=== PATIENT | female | born 1990 | race Asian ===

== ENCOUNTER 2018-03-28 15:21 | Outpatient (CLI) | payer OTHER ==
[~2018-03-28] VITALS: Ht 157.5 cm; Wt 71.1 kg
[~2018-03-28 15:21] MED LIST: PERM120L5 TP
[2018-03-28 15:37] VITALS: Ht 157.5 cm; Wt 71.1 kg
[2018-03-28 16:05] VITALS: BP 142/60; PULSE 109; RESP 19
[2018-03-28] MEDS ORDERED: PNV11TAB PO (16:12)
[2018-03-28] MEDS ORDERED: CEPH500C PO (16:14)
[2018-03-28] MEDS ORDERED: LACTATED RINGER'S 1,000 ML IV SCH (18:30)
[2018-03-28] MEDS ORDERED: BETAMET NA PHOS/AC(6 MG/ML) 2 ML INJ SYG IM SCH (21:00)
--- NOTE | 2018-03-28 21:36 | PN ---
Triage Information Date/Time Reason for visit: Abd/pelvic pain Weeks of Gestation 30 weeks /Para Diabetes: none Hypertention: none Additional information Twin Objective Vital Signs Date Temp Pulse Resp B/P (MAP) Pulse Ox O2 O2 Flow FiO2 Time Delivery Rate 03/28/18 98.0 109 19 142/60 98 Room Air 16:05 (87) Heart Rate: 120's Heart Rate Comments Reactive both twins Exam No cervical change Results/Medications Result Diagram: 03/28/18 1820 Results 24 hrs Laboratory Tests Test 03/28/18 18:20 White Blood Count 10.8 Red Blood Count 3.72 L Hemoglobin 10.2 L Hematocrit 30.6 L Mean Corpuscular Volume 82.3 Mean Corpuscular Hemoglobin 27.4 L Mean Corpuscular Hemoglobin Concent 33.3 Red Cell Distribution Width 12.9 Platelet Count 245 Mean Platelet Volume 9.3 # Immature Granulocytes % 1.900 H Neutrophils % 69.8 Lymphocytes % 18.5 Monocytes % 8.2 Eosinophils % 1.1 Basophils % 0.5 Nucleated Red Blood Cells % 0.0 Immature Granulocytes # 0.200 H Neutrophils # 7.5 Lymphocytes # 2.0 Monocytes # 0.9 Eosinophils # 0.1 Basophils # 0.1 Nucleated Red Blood Cells # 0.0 Urine Color COLORLESS Urine Clarity CLEAR Urine pH 7.0 Urine Specific [place] 1.001 L Urine Ketones NEGATIVE Urine Nitrite NEGATIVE Urine Bilirubin NEGATIVE Urine Urobilinogen NEGATIVE Urine Leukocyte Esterase NEGATIVE Urine Hemoglobin NEGATIVE Urine Glucose NEGATIVE Urine Total Protein NEGATIVE Medications Current Medications Lactated Ringer's 1,000 ml @ 125 mls/hr Q8H IV Last administered on 03/28/18at 18:52; Admin Dose 125 MLS/HR; Start 03/28/18 at 18:30 Betamethasone Acet/Betameth SodPhos (Celestone Soluspan) 12 mg Q24H IM Last administered on 03/28/18at 21:01; Admin Dose 12 MG; Start 03/28/18 at 21:00; Stop 03/29/18 at 21:01 Disposition: Discharge Assessment/Plan IM betamethasone given Return in 24 hours for next dose. JESSICA MORENO MD Mar 28, 2018 21:36
--- NOTE | 2018-03-28 21:54 | TRIAGE ---
OB Triage Datetime Report Generated by CPN: 03/28/2018 21:54 Datetime: 03/28/2018 21:27 Vaginal Exam Dilatation (cms): 1.0 Effacement (%): 50 Station: -3 Exam By: DR.DELSHAD Datetime: 03/28/2018 21:06 Labor Evaluation Frequency: IRRITABILITY Monitor Mode: External Duration (sec)2399: 20-30 Quality: Mild Pattern: Normal: <= 5 Contractions in 10 Minutes Resting Tone [place]: Relaxed Heart Rate FHR Baseline Rate: 135 Monitor Mode: External US FHR Baseline Changes: No Baseline Change Variability: Moderate 6-25 bpm Accelerations: 15X15 Decelerations: None Category: Category I Datetime: 03/28/2018 19:53 Labor Evaluation Frequency: none Monitor Mode: External Pattern: Normal: <= 5 Contractions in 10 Minutes Resting Tone [place]: Relaxed Heart Rate FHR Baseline Rate: 135 Monitor Mode: External US FHR Baseline Changes: No Baseline Change Variability: Moderate 6-25 bpm Accelerations: 15X15 Decelerations: None Category: Category I Datetime: 03/28/2018 19:05 Assessment Type: Triage Monitor Mode: External US FHR Baseline Changes: No Baseline Change Variability: Moderate 6-25 bpm Accelerations: 15X15 Decelerations: None Category: Category I Pain Assessment Pain Scale: 0 Pain Presence: None/Denies Pain Relief Measures: Comfort Measures Vaginal Bleeding: None Datetime: 03/28/2018 19:00 Labor Evaluation Frequency: irritability Monitor Mode: External Quality: Mild Pattern: Normal: <= 5 Contractions in 10 Minutes Resting Tone [place]: Relaxed Heart Rate FHR Baseline Rate: 135 Monitor Mode: External US FHR Baseline Changes: No Baseline Change Variability: Moderate 6-25 bpm Accelerations: 15X15 Decelerations: None Category: Category I Datetime: 03/28/2018 17:22 Heart Rate FHR Baseline Rate: 130 Monitor Mode: External US FHR Baseline Changes: No Baseline Change Variability: Moderate 6-25 bpm Accelerations: 15X15 Decelerations: None Category: Category I Datetime: 03/28/2018 17:11 Labor Evaluation Frequency: NONE Monitor Mode: Palpation Resting Tone [place]: Relaxed Datetime: 03/28/2018 16:53 Vaginal Exam Dilatation (cms): 1.0 Effacement (%): 50 Station: -3 Datetime: 03/28/2018 16:28 Labor Evaluation Frequency: 0 Monitor Mode: External Resting Tone [place]: Relaxed Heart Rate FHR Baseline Rate: 140 Monitor Mode: External US FHR Baseline Changes: No Baseline Change Variability: Moderate 6-25 bpm Accelerations: 15X15 Decelerations: None Category: Category I Pain Assessment Pain Scale: 0 Pain Presence: None/Denies Pain Relief Measures: Comfort Measures Membrane Status: Intact Datetime: 03/28/2018 15:55 Labor Evaluation Frequency: 0 Heart Rate FHR Baseline Rate: 140 Monitor Mode: External US FHR Baseline Changes: No Baseline Change Variability: Moderate 6-25 bpm Accelerations: 15X15 Decelerations: None Category: Category I Pain Assessment Pain Scale: 0 Pain Presence: None/Denies Pain Relief Measures: Comfort Measures Datetime: 03/28/2018 15:30 Stage of : OB Triage Assessment Type: Triage Maternal Assessment Level of Consciousness: Fully Conscious DTR's/Clonus: DTRs 2+; No Clonus Headache: Denies Blurred Vision: No Respiratory Effort: Unlabored; Regular Rhythm; Equal Expansion Breath Sounds, Left: Clear and Equal Breath Sounds, Right: Clear and Equal Nausea/Vomiting: Denies RUQ Epigastric Pain: Denies Lower Extremities Edema: None Upper Extremities Edema: None Facial Edema: None Temperature Route: Oral Fall Risk Assessment History of Falling: (0) No Secondary Diagnosis: (0) No Ambulatory Aid: (0) Bedrest/Nurse Assist IV Therapy: (0) No Gait: (0) Normal/Bedrest/Immobile Mental Status: (0) Oriented to Own Ability Fall Score: 0 Fall Risk Score Definition: No Risk: No action required Pain Assessment Pain Scale: 0 Pain Presence: None/Denies Pain Type: N/A Pain Goal: 0 Pain Relief Measures: Comfort Measures Datetime: 03/28/2018 15:29 Stage of : OB Triage Assessment Type: Triage Maternal Assessment Level of Consciousness: Fully Conscious DTR's/Clonus: DTRs 2+; No Clonus Headache: Denies Blurred Vision: No Respiratory Effort: Unlabored; Regular Rhythm; Equal Expansion Breath Sounds, Left: Clear and Equal Breath Sounds, Right: Clear and Equal Nausea/Vomiting: Denies RUQ Epigastric Pain: Denies Lower Extremities Edema: None Degree: None Upper Extremities Edema: None Degree: None Facial Edema: None Fall Risk Assessment History of Falling: (0) No Secondary Diagnosis: (0) No Ambulatory Aid: (0) Bedrest/Nurse Assist IV Therapy: (0) No Gait: (0) Normal/Bedrest/Immobile Mental Status: (0) Oriented to Own Ability Fall Score: 0 Fall Risk Score Definition: No Risk: No action required Datetime: 03/28/2018 15:28 EGA: 30.6 Datetime: 03/28/2018 15:25 Arrived By: Ambulatory Arrived From: Office Chief Complaint: Sent from MD office for BPP/NST Movement: Present Contractions: Denies/Absent Rupture of Membranes: Denies Vaginal Bleeding: None Vaginal Discharge: Present Recent Sexual Intercouse: Denies Abdominal Trauma: Not Applicable Patient Complaints: None Datetime: 03/28/2018 15:14 Time of Arrival: 03/28/2018 15:14 Arrived By: Ambulatory Arrived From: Office Chief Complaint: LOST MUCOUS PLUG,DENIES CONTRACTIONS,VE 1CM?50%/-3 AND TWINS AT 30 WKS. Movement: Present Contractions: Denies/Absent Rupture of Membranes: Denies Vaginal Bleeding: None Vaginal Discharge: Denies Recent Sexual Intercouse: Denies Abdominal Trauma: Not Applicable Patient Complaints: None Provider Notified: ABUSLEME Initial Plan: NST ,BPP, EFW, IV HYDRATION ,UA AND UA /CS AND CBC
== END 2018-03-28 21:45 | disposition home or self-care (01) ==
LOC: OBT 15:21 → L-D 15:22 → OBT 21:45
PROVIDERS: ATTEND Obstetrics & Gynecology
DX: O26.893 Other specified pregnancy related conditions, third trimester (principal); Z3A.30 30 weeks gestation of pregnancy; R10.2 Pelvic and perineal pain
CPT/HCPCS: 36415; 76815; 76817; 76818; 81003; 85025; 87086; 96360; 96361; J0702; J7120; Z7500; G0463

== ENCOUNTER 2018-03-29 20:57 | Outpatient (CLI) | payer OTHER ==
[~2018-03-29] VITALS: Ht 154.9 cm; Wt 71.3 kg
[~2018-03-29 20:57] MED LIST changes: +CEPH500C PO; +PNV11TAB PO
[2018-03-29 21:29] VITALS: BP 110/60; PULSE 110; RESP 18
[2018-03-29] MEDS ORDERED: BETAMET NA PHOS/AC(6 MG/ML) 2 ML INJ SYG IM ONE (21:30)
--- NOTE | 2018-03-30 00:45 | PN ---
Triage Information Date/Time Late entry note for exam done for March 29, 2018 Reason for visit: Patient is here to receive the second dose of steroid shots was given for concern for possible delivery. Weeks of Gestation 31 weeks /Para 2 para 1 Diabetes: none Hypertention: none Additional information 27-year-old with IUP at 31 weeks and twin gestation with care with Dr. Jerilyn Bartholomew, who presented yesterday to triage with complaint of cramps and ruled out for labor. She was given a dose of steroid and was sent today to receive a second dose of steroid. Patient had a vaginal exam yesterday and for that reason fibronectin was not done. Currently more than 24 hours after exam. Patient currently denies any abdominal pain, uterine cramping, leaking of fluid, vaginal bleeding or decreased movement. She had a cervical length that showed 3.2 cm. fibronectin today was done negative. Patient is asymptomatic. She is here to receive the second dose of steroid. First dose was given 24 hours ago. Objective Vital Signs Date Temp Pulse Resp B/P (MAP) Pulse Ox O2 O2 Flow FiO2 Time Delivery Rate 03/29/18 98.2 110 18 110/60 Room Air 21:29 (77) Heart Rate: 130's Heart Rate Comments NST category 1 for both fetuses Contractions: None Exam General appearance: Alert and oriented x4 does not appear to be in any acute distress comfortable Abdomen: Soft, gravid, fundal height consider gestational age NST: Category 1 for both fetuses No contraction noted on the monitor Laboratory Tests Test 03/29/18 21:43 Fibronectin NEGATIVE Results/Medications Results 24 hrs Laboratory Tests Test 03/29/18 21:43 Fibronectin NEGATIVE Imaging Results PROCEDURE: CERVICAL LENGTH ULTRASOUND CLINICAL INDICATION: DFM, size, twins. TECHNIQUE: Trans-vaginal imaging of the cervical canal was performed utilizing becker-scale imaging. Sagittal and transverse images were obtained. Trans- abdominal images were also obtained. The images were reviewed on a PACS workstation. COMPARISON: OB ultrasound of the same day. FINDINGS: The cervix is closed with a length of 3.2 cm. There is twin live intrauterine . Twin A: heart rate is 129 beats per minute. Position is cephalic and placenta is posterior, grade 1. Twin B: heart rate is 142 beats per minute. Position is transverse, maternal left and placenta is fundal posterior, grade 1. IMPRESSION: 1. Cervical length measures 3.2 cm. RPTAT: HFN Disposition: Discharge Assessment/Plan IUP at 31 weeks Twin gestation No evidence of labor No contraction noted on the monitor Cervical length yesterday was checked 3.2 fibronectin today was then negative Cervix appears closed and long DC home Strict labor precautions kick count discussed the patient Follow-up within 24-48 hours with primary OB office recommended Adequate hydration discussed Patient verbalized understanding all the above recommendation and discussion. All questions were answered to patient's best satisfaction. ALEC RILEY MD Mar 30, 2018 00:45
--- NOTE | 2018-03-30 02:46 | TRIAGE ---
OB Triage Datetime Report Generated by CPN: 03/30/2018 02:46 Datetime: 03/29/2018 22:35 Contraction Comments: no contractions palpated Datetime: 03/29/2018 21:40 Stage of : OB Triage Datetime: 03/29/2018 21:14 Monitor Mode: External Monitor Mode: External US Comments: A _ B MONITORS SWITCHED, PT HAD BABY A AND BABY B CONFUSED AT FIRST Datetime: 03/29/2018 21:03 Time of Arrival: 03/29/2018 20:55 EGA: 31.0 Arrived By: Ambulatory Arrived From: Home Chief Complaint: 2ND BETAMETHASONE SHOT Movement: Present Contractions: Denies/Absent Rupture of Membranes: Denies Vaginal Bleeding: None Vaginal Discharge: Denies Recent Sexual Intercouse: Denies Abdominal Trauma: Not Applicable Patient Complaints: Other Time Provider Notified: 03/29/2018 21:40 Provider Notified: Dr Marte Initial Plan: EFM,BETA,FFN
== END 2018-03-29 23:37 | disposition home or self-care (01) ==
LOC: OBT 20:57 → L-D 20:58 → OBT 23:37
PROVIDERS: ATTEND Obstetrics & Gynecology
DX: O26.893 Other specified pregnancy related conditions, third trimester (principal); R10.2 Pelvic and perineal pain; O30.003 Twin pregnancy, unspecified number of placenta and unspecified number of amniotic sacs, third trimester; Z3A.31 31 weeks gestation of pregnancy
CPT/HCPCS: 82731; 96372; J0702; Z7500; G0463

== ENCOUNTER 2018-04-25 14:30 | Inpatient (IN) | payer OTHER ==
[~2018-04-25] VITALS: Ht 160 cm; Wt 85.9 kg
[~2018-04-25 14:30] MED LIST changes: -PERM120L5 TP
[2018-04-25 15:32] VITALS: BP 109/70; RESP 18
[2018-04-25] MEDS ORDERED: LACTATED RINGER'S 1,000 ML IV* SCH (16:00)
[2018-04-25] MEDS ORDERED: TERBUTALINE 1 MG/ML INJ SC PRN (17:00)
[2018-04-25] MEDS ORDERED: NIFEdipine 10 MG CAP PO SCH (21:00)
[2018-04-25] MEDS ORDERED: ACETAMINOPHEN 325 MG TAB PO PRN (21:00)
[2018-04-25] MEDS: LACTATED RINGER'S 1,000 ML IV SCH (21:45)
[2018-04-26] MEDS: NIFEdipine 10 MG CAP PO SCH ×2 (05:45→12:03)
[2018-04-26] MEDS: LACTATED RINGER'S 1,000 ML IV SCH ×3 (06:06→22:04)
--- NOTE | 2018-04-26 11:52 | PREOPHP ---
DATE OF ADMISSION: 04/25/2018 HISTORY OF PRESENT ILLNESS: This is a 27-year-old female 2, para 1, previous vaginal deliver y in 2014. At this time, the patient has seen me with a twin at 20 weeks. She started the care with me with a last period of 08/2017 and EDC by ultrasound of 05/31/2018. The patien elizabeth has been seen by Dr. Ogden a perinatologist for twin with dichorionic diamniotic pregnan cy fraternal twins. She had the cell-free DNA that showed a very low risk for trisomy. This was don e early in the . The patient was slightly anemic. The patient had been seeing me for prena emma care that has been unremarkable with no complications until yesterday where she started having pa in, and she was admitted with 2 cm dilatation, 50% effacement, -2, and membranes intact. She was hav ing contractions that were regular and she is 35 weeks today. The patient is getting admitted for to colysis and for further consultation to perinatology to see when we will deliver her. If we cannot s top the contractions, we will deliver if we could, maybe will keep her in observation since she is al ready dilating. PAST MEDICAL HISTORY: Unremarkable. ALLERGIES: ASPIRIN THAT MAKES HER DIZZY. FAMILY HISTORY: Nonremarkable. PHYSICAL EXAMINATION: VITAL SIGNS: She is 5 feet 3 inches. She weighs 155, blood pressure is 100/70, pulse is 80, respira tions 16. HEAD AND NECK: Normal. CHEST: Clear. HEART: Normal sinus rhythm. LUNGS: Clear. BREASTS: Soft, nontender, no masses. ABDOMEN: Soft. Uterus with irregular contractions right now. PELVIC: Cervix 2 cm, 70% effaced, -2, membranes intact with a twin , first baby is cephalic . Second baby is transverse. BPP NST were normal for both of them. We will wait for perinatology c onsultation to see if we need to imminently deliver her or wait a little bit and see if we can gain a few days for delivery. DIAGNOSES: Twin , 35 weeks with early labor, previous vaginal delivery. Dictated By: LEONA CLAYTON/NTS Conf#: [id number] DID#: [id number]
--- NOTE | 2018-04-26 13:58 | QN ---
Documentation Comment Late entry note. Patient seen on 04/25/2018 at 2000 27 years old 2 para 1001 with diamniotic/dichorionic twin gestation at 35 weeks with a MANJINDER of 05/31/2018 was admitted for close monitoring due to uterine contractions. She states good movement x2. She denies nausea, vomiting, shortness of breath, chest pain, headache, visual changes, vaginal bleeding or LOF. heart rate: Baby A 130 bpm, moderate variability with acceleration, no de celeration Baby B 135 bpm, moderate variability with acceleration, no deceleration She has irregular uterine contractions She is currently on Procardia 20 mg p.o. every 6 hours Her blood type is B+/rubella immune Continue current management Follow-up with her primary OB Consult with perinatologist tomorrow AVELINO QUINTERO Apr 26, 2018 13:58
[2018-04-26] MEDS ORDERED: CA GLUCONATE (GM) 10% 10ML INJ IV PRN (17:00)
[2018-04-26] MEDS ORDERED: MAGNESIUM SULFATE 4 GM/100 ML 100 ML IV SCH (17:00)
[2018-04-26] MEDS: MAGNESIUM SULFATE 20 GM/500 ML 500 ML IV SCH (17:44)
[2018-04-26] MEDS: DEXAMETHASONE 4 MG/ML 5 ML INJ IM SCH (18:34)
--- NOTE | 2018-04-27 00:17 | CONS ---
DATE OF ADMISSION: 04/25/2018 DATE OF CONSULTATION: 04/26/2018 HISTORY OF PRESENT ILLNESS: The patient is a 27-year-old G2, P1 with twin intrauterine at 35 weeks and 2 days, presented with complaint of abdominal pain. She was found to be 2 cm dilated, 5 0% effaced. She was placed on Procardia. Currently, she is still having contractions which she does feel and also she received betamethasone last month. PAST MEDICAL HISTORY: Not significant. PHYSICAL EXAMINATION: VITAL SIGNS: Normal. Physical examination deferred. heart tones reassuring. Contractions every 5 to 10 minutes. IMPRESSION: Twin intrauterine at 35 weeks and 2 days with labor on Procardia and c ontracting. RECOMMENDATIONS: Received Procardia, start magnesium sulfate, also started betamethasone or dexameth asone. Continue with the magnesium sulfate until this last dose of the dexamethasone is given. I do recommend for the patient to stay until 37 weeks given the fact that she is with twins and she has a child at home and she is already 2 cm dilated. After the dexamethasone and magnesium a re done, no need to place the patient on any type of maintenance tocolysis. Dictated By: INGRID HAYES MD ST/NTS Conf#: [id number] DID#: [id number] CC: LEONA SANDOVAL MD;*EndCC*
[2018-04-27] MEDS: MAGNESIUM SULFATE 20 GM/500 ML 500 ML IV SCH (04:39)
[2018-04-27] MEDS: LACTATED RINGER'S 1,000 ML IV SCH ×3 (06:09→19:31)
[2018-04-27] MEDS: DEXAMETHASONE 4 MG/ML 5 ML INJ IM SCH ×2 (08:46→20:29)
[2018-04-27 08:58] VITALS: Ht 160 cm; Wt 85.9 kg
[2018-04-27] MEDS ORDERED: LACTATED RINGER'S 1,000 ML IV SCH (09:49)
[2018-04-27] MEDS ORDERED: MAGNESIUM SULFATE 20 GM/500 ML 500 ML IV SCH (09:49)
[2018-04-27] MEDS ORDERED: NIFEdipine 10 MG CAP ONE (11:34)
--- NOTE | 2018-04-27 11:36 | PN ---
Date/Time of Note Date/Time of Note DATE: 04/27/18 TIME: 11:31 OB Subjective Subjective Subjective Dr. Nicholson was consulted on patient having double vision on 2 g of magnesium per ryanne. The instructions were to DC the magnesium sulfate and start her back on Procardia by mouth . The patient would like to go home but we would like to keep her until 37 weeks to deliver her and keep her under observation for active labor since she is multigravida she could go fast and come back delivering. Her dilatation yesterday was 2-370% effaced and she still allan in spite of magnesium sulfate . OB Objective HEENT: WNL Heart: Rhythm Normal Lungs: Clear, Equal Abdomen: WNL Extremities: Normal Reflexes: Normal Cervical Dilatation: 2cm Effacement: 75% Station: -2 Membranes: Intact Heart Rate: 120's Accelerations: Accelerations Present Varibility: Moderate Contractions on Admission: < 5 Minutes Apart LEONA SANDOVAL MD Apr 27, 2018 11:36
[2018-04-27] MEDS: NIFEdipine 10 MG CAP PO SCH ×2 (11:54→18:05)
[2018-04-28] MEDS: NIFEdipine 10 MG CAP PO SCH ×2 (00:07→06:30)
[2018-04-28] MEDS ORDERED: AL HYDROX/MG HYDROX/SIMETH 30 ML CUP PO PRN (03:00)
[2018-04-28] MEDS ORDERED: AMPICILLIN 2 GM/NS (PMX) 100 ML IVPB ONE (07:30)
--- NOTE | 2018-04-28 07:56 | QN ---
Documentation Comment Patient has been allan quite a bit for which she was evaluated in her cervix is right now at 3-4 cm dilated 50% effaced -2 membranes intact cervix is anterior seems that she is going slowly to labor and we will need to deliver her. An ultrasound is being performed to see what the position of the second twin We will will reevaluate for possible today. Clindamycin being given LEONA SANDOVAL MD Apr 28, 2018 07:56
[2018-04-28] MEDS ORDERED: MISOPROSTOL 200 MCG TAB PR PRN ×2 (08:00→09:00)
[2018-04-28] MEDS ORDERED: OXYTOCIN 30 UNITS/LR 500 ML IV PRN ×2 (08:00→09:00)
[2018-04-28] MEDS ORDERED: CARBOPROST 250 MCG INJ IM PRN ×2 (08:00→09:00)
[2018-04-28] MEDS ORDERED: CLINDAMYCIN 900 MG/D5W (PMX) 50 ML IVPB SCH (08:00)
[2018-04-28] MEDS ORDERED: OXYTOCIN 30 UNITS/LR 500 ML IV SCH ×2 (08:00→08:56)
[2018-04-28] MEDS ORDERED: METHYLERGONOVINE 0.2 MG INJ IM PRN ×2 (08:00→09:00)
[2018-04-28] MEDS ORDERED: LACTATED RINGER'S 1,000 ML IV SCH (08:56)
[2018-04-28] MEDS ORDERED: AMPICILLIN 1 GM/NS (PMX) 50 ML IVPB SCH (09:00)
[2018-04-28] MEDS ORDERED: HYDROCODONE/APAP (5/325) TAB PO PRN (09:00)
[2018-04-28] MEDS ORDERED: METHYLERGONOVINE 0.2 MG TAB PO PRN (09:00)
[2018-04-28] MEDS ORDERED: LANOLIN HPA 1 PKT TOP PRN (09:00)
[2018-04-28] MEDS ORDERED: NA PHOSPHATE/BIPHOS 133 ML ENEMA PR PRN (09:00)
[2018-04-28] MEDS ORDERED: morphine SULFATE/PF (10 MG/10 ML) INJ ONE (09:23)
[2018-04-28] MEDS ORDERED: ONDANSETRON 4 MG INJ ONE (09:23)
[2018-04-28] MEDS ORDERED: KETOROLAC 30 MG INJ ONE (09:23)
[2018-04-28] MEDS ORDERED: METOCLOPRAMIDE 10 MG INJ ONE (09:23)
[2018-04-28] MEDS ORDERED: HYDROmorphONE 0.5 MG/0.5 ML SYG IV PRN (09:30)
--- NOTE | 2018-04-28 09:31 | SIPON ---
Date/Time of Note Date/Time of Note DATE: 04/28/18 TIME: 09:30 Operative Report Preoperative Diagnosis 35 2 weeks twin gestation dichorionic diamniotic in labor Second twin transverse lie Postoperative Diagnosis Same Operation/Procedure Performed Primary low segment transverse section Surgeon see signature line technical assistant Dr. Stapleton Anesthesia: spinal Estimated blood loss: other Transfusion Required none Specimen Placenta Grafts/Implants none Complications none LEONA SANDOVAL MD Apr 28, 2018 09:31
[2018-04-28] MEDS ORDERED: PHENYLephrine (100 MCG/ML) 10ML SYG ONE (09:35)
--- NOTE | 2018-04-28 09:41 | PREOPHP ---
DATE OF ADMISSION: 04/25/2018 HISTORY OF PRESENT ILLNESS: This is a 27-year-old female 2, para 1. This patient is with a twin at 35 and 2 days of , EDC 05/31/2018. The patient has been seeing perinatolo [facility] with a dichorionic, diamniotic fraternal twins and she had no problems until recently where she started having contractions and we admitted her for a 2 cm dilatation of the cervix, 50% ef facement, -2, membranes intact. The patient received magnesium sulfate and the steroids, and she has been intolerant to the magnesium sulfate so we started the Procardia and she is breaking through the Procardia with contractions. The Procardia was 20 mg q.6h. and at this time her dilatation is 4 cm dilation with contractions every 3 minutes and she is feeling strongly. The patient is advised for a section due to the second twin being transverse and also to prevent any problems in vaginal delivery if the second twin was to be delivered vaginally. PAST MEDICAL HISTORY: Noncontributory. ALLERGIES: 1. ASPIRIN THAT MAKES HER DIZZY. 2. PENICILLIN. FAMILY HISTORY: Unremarkable. PHYSICAL EXAMINATION: VITAL SIGNS: The patient is 5'3''. She is 155 pounds, blood pressure is normal 100/70, pulse is 80, respirations 16. HEAD AND NECK: Normal. CHEST: Clear. HEART: Normal sinus rhythm. LUNGS: Clear. BREASTS: Soft, nontender, no masses. ABDOMEN: Soft. Uterus with contractions every 3 minutes. PELVIC: Cervix is 4 cm, 70% effaced, -2, membranes intact. First baby cephalic, second baby transve rse. EXTREMITIES: Normal with normal pulses and no edema. PLAN: With the diagnoses of 35.2 weeks , previous vaginal delivery, in active labor, the pa tiesailaja is undergoing a primary section. She has been advised of the possible risks and possi ble complications of the procedure with her alternatives and options. Written information was provid ed. She had no more questions and agreed to go ahead with the procedure with full understanding and no more questions. Dictated By: LEONA SANDOVAL MD [facility] Conf#: [id number] DID#: [id number] CC: LEONA SANDOVAL MD;*EndCC*
[2018-04-28] MEDS ORDERED: OXYTOCIN 30 UNITS/LR 500 ML IV ONE (10:38)
--- NOTE | 2018-04-28 11:30 | OPR ---
DATE OF OPERATION: 04/28/2018 PROCEDURE: Primary low segment transverse section. PREOPERATIVE DIAGNOSES: 35.2 weeks , twin gestation, dichorionic and diamniotic , in labor. SURGEON: Leona Sandoval MD NETWORK CABLE INSTALLER: Robert Stapleton MD ANESTHESIA: Dr. Larsen; spinal anesthesia. COMPLICATIONS: None. PROCEDURE: The patient was given spinal anesthesia, placed in the supine position. The abdomen was prepped and draped, and the bladder was drained with a Millan catheter. A transverse incision was mad e suprapubically over the midline of about 10 cm in diameter. The abdominal cavity was reached. The lower uterine segment was identified and the bladder flap was made. The uterus was opened in the mi dline with a scalpel and the incision was increased laterally on either side for about 3 inches. The baby A was delivered as cephalic and the cord was clamped and cut. The baby was handed over to the data modeling specialist team. The cord blood was obtained. The placenta was removed after the second baby was delivered. The bag of water was ruptured for the second baby. Baby A was a boy, Apgars 9. Baby B was delivered. It was in a transverse lie and we managed to bring the head into the incision and del ivered the baby. The cord was clamped and cut. The baby was handed over to the data modeling specialist team w as a baby girl, 9. The delayed clamping of the cord was done and the cord blood was obtained. The placenta was removed. The uterus was cleaned out and closed in layers using an 0 PDS looped sut ure in 2 layers, imbedding the first line of suture and hemostasis was good. The tubes and ovaries w ere normal. The abdominal cavity was cleaned out. The piece of Interceed was left on the area of th e incision to prevent adhesions. The peritoneum was closed with a 2-0 Vicryl. The fascia was closed with a 0 PDS looped suture, 2-0 Vicryl for the subcutaneous tissue, 3-0 Monocryl subcuticular to the skin. Steri-Strips were placed along with Dermabond. The patient tolerated the procedure well and left the OR awake and stable. Sponge counts and instrument counts were correct. Intravenous antibio tics were given for prophylaxis. Blood loss was approximately 800 mL. Dictated By: LEONA CLAYTON/KIMBERLEY Conf#: [id number] DID#: [id number] CC: LEONA SANDOVAL MD; ROBERT STAPLETON MD;*End*
[2018-04-28 13:00] VITALS: BP 110/55; PULSE 92; RESP 19
[2018-04-28] MEDS: SENNA/DOCUSATE NA (8.6MG/50MG) TAB PO SCH ×2 (13:00→21:00)
[2018-04-28] MEDS: DEXAMETHASONE 4 MG/ML 5 ML INJ IM SCH (13:00)
[2018-04-28 13:30] VITALS: BP 122/67; PULSE 102; RESP 19
[2018-04-28 14:00] VITALS: BP 117/60; PULSE 95; RESP 18
[2018-04-28] MEDS: CLINDAMYCIN 600 MG/D5W (PMX) 50 ML IVPB SCH ×3 (14:16→21:48)
--- NOTE | 2018-04-28 15:28 | PAC ---
Date/Time of Note Date/Time of Note DATE: 04/28/18 TIME: 15:27 Post-Anesthesia Notes Post-Anesthesia Note Last documented vital signs Vital Signs Date Temp Pulse Resp B/P (MAP) Pulse Ox O2 O2 Flow FiO2 Time Delivery Rate 04/28/18 99.3 95 18 117/60 98 Room Air 14:00 (79) 04/25/18 98 15:32 Activity: WNL Respiratory function: WNL Cardiovascular function: WNL Mental status: Baseline Pain reasonably controlled: Yes Hydration appropriate: Yes Nausea/Vomiting absent: No ARA MANZANO MD Apr 28, 2018 15:28
[2018-04-28 15:30] VITALS: BP 115/62; PULSE 100; RESP 18
[2018-04-28] MEDS ORDERED: morphine 2 MG INJ IV PRN ×2 (15:30)
[2018-04-28] MEDS ORDERED: ONDANSETRON 4 MG INJ IV PRN ×2 (15:30)
[2018-04-28] MEDS ORDERED: NALOXONE (0.4 MG/ML) INJ IV PRN (15:30)
[2018-04-28] MEDS ORDERED: DIPHENHYDRAMINE 50 MG INJ IV PRN ×2 (15:30)
[2018-04-28] MEDS ORDERED: morphine (1 MG/ML) 10ML SYRINGE IV PRN ×3 (15:30)
[2018-04-28 20:00] VITALS: BP 110/67; PULSE 92; RESP 20
[2018-04-29] VITALS: BP 112/74; PULSE 81; RESP 18
[2018-04-29] MEDS: morphine 2 MG INJ IV PRN ×2 (00:39→08:03)
--- NOTE | 2018-04-29 00:45 | OPPN ---
Date/Time of Note Date/Time of Note DATE: 04/29/18 TIME: 00:44 Anesthesia Follow up Anesthesia Follow up Last documented vital signs Vital Signs Date Temp Pulse Resp B/P (MAP) Pulse Ox O2 O2 Flow FiO2 Time Delivery Rate 04/28/18 98.0 92 20 110/67 96 Room Air 20:00 (81) Respiratory function: WNL Cardiovascular function: WNL Comments A 27 year female s/p spinal with duramorph for post op date POD #1 is fine. no pain, N/V, itching , or headache. no neural deficit ARA MANZANO MD Apr 29, 2018 00:45
[2018-04-29 04:00] VITALS: BP 112/85; PULSE 91; RESP 19
[2018-04-29] MEDS: CLINDAMYCIN 600 MG/D5W (PMX) 50 ML IVPB SCH ×4 (05:17→23:55)
[2018-04-29 08:00] VITALS: BP 107/65; PULSE 86; RESP 14
[2018-04-29] MEDS: SENNA/DOCUSATE NA (8.6MG/50MG) TAB PO SCH ×2 (08:03→21:30)
--- NOTE | 2018-04-29 10:00 | PD.PPDC ---
SEWER PIPE CLEANER Discharge Instruction Condition [id number] Patient Condition: [id number] Good Diet Motwe1Gv Diet: Iteqr7p Resume Regular Diet Activity/Restrictions [id number] Activity: Ltvvd2k Normal Activity May Shower [id number] Restrictions: Xxxps2e No Exercising No Lifting No Driving No Sexual Activity Nothing in the Vagina No [place] No Tampons, douche Wound/Drain Care Instructions [id number] Wound/Drain Care Instructions: Tlupv3m Wash with soap and water Keep clean and dry Follow-up Follow-up with Physician: 1, Week/Weeks Return to clinic for [id number] CERAMIC MAKER DEMONSTRATOR Instructions: Nvuab4l Fever greater than 101 Chills Worsening abdominal pain Excessive Vaginal Bleeding More than 2 pads per hour Unable to tolerate diet [id number] Surgical Instructions: [id number] Incisional Drainage Incisional Redness LEONA SANDOVAL MD Apr 29, 2018 10:00
--- NOTE | 2018-04-29 10:17 | PN ---
Date/Time of Note Date/Time of Note DATE: 04/29/18 TIME: 10:16 Assessment/Plan Lines/Catheters IV Catheter Type (from Nrsg): Saline Lock Subjective 24 Hr Interval Summary Day 1 post Afebrile, feels good with pain controlled Uterus contracted Incision healing well Lochia normal Encouraged ambulation Constitutional: no complaints Feeding: advancing diet Pain Control: mild Detailed Summary Eyes: no complaints ENT: no complaints Respiratory: no complaints Cardiovascular: no complaints Gastrointestinal: no complaints Genitourinary: no complaints Musculoskeletal: no complaints Skin: no complaints Neurologic: no complaints Endocrine: no complaints Lymphatic: no complaints Psychological: no complaints, nl mood/affect Immunologic: no complaints Exam/Review of Systems Vital Signs Vitals Vital Signs Date Temp Pulse Resp B/P (MAP) Pulse Ox O2 O2 Flow FiO2 Time Delivery Rate 04/29/18 98.5 91 19 112/85 95 Room Air 04:00 (94) Intake and Output 04/28/18 04/28/18 04/29/18 1515:00 23:00 07:00 IntakeIntake Total 700 ml OutputOutput Total 1050 ml 2500 ml BalanceBalance -1050 ml 700 ml -2500 ml Exam Constitutional: alert, oriented, well developed Psych: no complaints, nl mood/affect Head: normocephalic, atraumatic Eyes: nl conjunctiva, EOMI, nl lids, nl sclera ENMT: nl external ears & nose, nl lips & teeth, nl nasal mucosa & septum, mucosa pink and moist Neck: supple, non-tender Respiratory: clear to auscultation, normal air movement Cardiovascular: regular rate and rhythm, nl pulses Gastrointestinal: soft, nl liver, spleen, non-tender Musculoskeletal: nl extremities to inspection, nl gait and stance Extremities: normal pulses Neurological: 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
[2018-04-29] MEDS ORDERED: BISACODYL (EC) 5 MG TAB PO ONE ×2 (10:30→18:45)
[2018-04-29] MEDS: HYDROCODONE/APAP (5/325) TAB PO PRN ×2 (11:52→17:55)
[2018-04-29] MEDS: SOD FERRIC GLUC COMPLX 125 MG in SOD CHLORIDE 0.9% 100 ML IVPB SCH (13:12)
[2018-04-29 17:00] VITALS: BP 117/81; PULSE 104; RESP 17
[2018-04-29 20:00] VITALS: BP 110/64; PULSE 98; RESP 18
[2018-04-30] MEDS: HYDROCODONE/APAP (5/325) TAB PO PRN ×2 (00:54→22:52)
[2018-04-30 04:00] VITALS: BP 114/89; PULSE 89; RESP 18
[2018-04-30] MEDS: CLINDAMYCIN 600 MG/D5W (PMX) 50 ML IVPB SCH ×2 (05:17→11:47)
[2018-04-30 07:53] VITALS: BP 112/71; PULSE 86; RESP 18
[2018-04-30] MEDS: SENNA/DOCUSATE NA (8.6MG/50MG) TAB PO SCH ×2 (09:35→22:51)
[2018-04-30] MEDS: SOD FERRIC GLUC COMPLX 125 MG in SOD CHLORIDE 0.9% 100 ML IVPB SCH (13:26)
[2018-04-30 14:30] VITALS: BP 114/76; PULSE 78; RESP 18
[2018-04-30] MEDS ORDERED: BISACODYL (EC) 5 MG TAB PO ONE (14:30)
[2018-04-30] MEDS: CEPHALEXIN 500 MG CAP PO SCH (18:40)
[2018-04-30 21:00] VITALS: BP 117/77; PULSE 100; RESP 18
[2018-05-01] MEDS: CEPHALEXIN 500 MG CAP PO SCH ×3 (00:05→12:23)
[2018-05-01 04:00] VITALS: BP 118/78; PULSE 95; RESP 18
[2018-05-01] MEDS: HYDROCODONE/APAP (5/325) TAB PO PRN ×2 (05:39→13:17)
[2018-05-01 08:20] VITALS: BP 112/76; PULSE 80; RESP 18
[2018-05-01] MEDS ORDERED: MEASLES,MUMPS,RUBELLA VACCINE INJ SC* ONE (09:00)
[2018-05-01] MEDS ORDERED: DIPHTH/TET/ACEL PERTUSS (ADULT) 0.5 ML VIAL IM* ONE (09:00)
[2018-05-01] MEDS: SENNA/DOCUSATE NA (8.6MG/50MG) TAB PO SCH (09:32)
--- NOTE | 2018-05-01 13:12 | QN ---
Documentation Comment POD#3 is stable afebrile tolerates diet No VB +BM +voids No sign of depression VS stable Gen NAD Abd soft NT ND Incision intact Genitalia No blood at perineum ---> Discharge with precautions --->Questions answered --->Follow up with provider BC SALAS M.D. May 01, 2018 13:12
--- NOTE | 2018-05-01 13:12 | DS ---
Date/Time of Note Date/Time of Note DATE: 05/01/18 TIME: 13:12 Discharge Summary Admission/Discharge Info Admit Date/Time Apr 25, 2018 at 20:41 Discharge Date/Time 05/01/2018 Discharge Diagnosis Patient Condition: Good Hospital Course uneventful Home Meds Reported Medications Cephalexin* (Cephalexin*) 500 Mg Capsule, 500 MG PO Q6, #28 CAP 03/28/18 [id number] ( 19) 1 Each Tablet, 1 TAB PO DAILY, TAB 03/28/18 Primary Care Provider Care Physician No Primary Pending Labs Laboratory Tests Test 05/01/18 06:15 White Blood Count 12.8 10^3/ul (4.8-10.8) Red Blood Count 3.36 10^6/ul (4.20-5.40) Hemoglobin 8.8 g/dl (12.0-16.0) Hematocrit 27.1 % (37.0-47.0) Mean Corpuscular Volume 80.7 fl (82.0-101.0) Mean Corpuscular Hemoglobin 26.2 pg (29.0-33.0) Mean Corpuscular Hemoglobin Concent 32.5 g/dl (32.0-37.0) Red Cell Distribution Width 15.2 % (11.5-14.5) Platelet Count 255 10^3/UL (140-415) Mean Platelet Volume 8.9 fl (7.4-10.4) Immature Granulocytes % 1.600 % (0.001-0.429) Neutrophils % 62.7 % (39.0-77.0) Lymphocytes % 26.0 % (15.0-51.0) Monocytes % 6.8 % (0.0-11.0) Eosinophils % 2.6 % (0.0-7.0) Basophils % 0.3 % (0.0-2.0) Nucleated Red Blood Cells % 0.0 /100WBC (0.0-0.0) Immature Granulocytes # 0.200 10^3/ul (0.0-0.031) Neutrophils # 8.0 10^3/ul (1.6-7.5) Lymphocytes # 3.3 10^3/ul (0.8-2.9) Monocytes # 0.9 10^3/ul (0.3-0.9) Eosinophils # 0.3 10^3/ul (0.0-0.5) Basophils # 0.0 10^3/ul (0.0-0.1) Nucleated Red Blood Cells # 0.0 10^3/ul (0.0-0.0) BC SALAS M.D. May 01, 2018 13:12
== END 2018-05-01 15:05 | disposition home or self-care (01) | DRG 788 ==
LOC: OBT 14:30 → L-D 14:30 → OBT 20:41 → L-D 20:41 → PP1 04-28 14:46
PROVIDERS: ADMIT Obstetrics & Gynecology; ATTEND Obstetrics & Gynecology
PROC: 10D00Z1 Extraction of Products of Conception, Low, Open Approach (ICD-10-PCS; principal; 2018-04-28 09:00)
DX: O60.14X2 Preterm labor third trimester with preterm delivery third trimester, fetus 2 (principal); O30.043 Twin pregnancy, dichorionic/diamniotic, third trimester; Z3A.35 35 weeks gestation of pregnancy; Z37.2 Twins, both liveborn
CPT/HCPCS: 36415; 76815; 76818; 81001; 81003; 82731; 83735; 85025; 85610; 85730; 86592; 86850; 86900; 86901; 87340; 88307; 99464; G0463; J1100; J1170; J1885; J2210; J2270; J2274; J2370; J2405; J2590; J2765; J2916; J3105; J3475; J7120